=== PATIENT | female | born 1980 | race Caucasian/White ===

== ENCOUNTER → 2017-02-19 | Outpatient (CLI) | payer MEDICAID ==
[2014-11-03 09:44] VITALS: BP 130/76
[~2017-02-19] MED LIST: DIFLUCAN150 MG PO; NIGHT-TIME COL300 ML; NO HOME MEDICATIONS; NORCO 325 MG-51 TA1 PO; PHENERGAN W/CO120 M1 PO; VIBRAMYCIN100 MG PO; ZOFRAN ODT8 MG PO
== END ==
LOC: LAB 12:08
DX: J02.0 Streptococcal pharyngitis (principal); B95.4 Other streptococcus as the cause of diseases classified elsewhere